=== PATIENT | male | born 1955 ===

== ENCOUNTER 2018-07-26 10:03 | Emergency (ER) | payer OTHER ==
[2018-07-26] MEDS ORDERED: NS 0.9% 1000 ML** 1,000 ML IV ONE (10:11)
[2018-07-26] MEDS ORDERED: Lorazepam PYXIS KEY PRN (10:12)
[2018-07-26] MEDS ORDERED: LORazepam INJ* 2 MG/ML 1 ML VIAL IV PUSH ONE (10:12)
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
[2018-07-26] MEDS ORDERED: Lorazepam PYXIS KEY ONE (10:33)
[2018-07-26] MEDS: levETIRAcetam 1000MG IVPREMIX* 1,000 MG/100 ML BAG IVPB ONE ×3 (11:33→11:38)
[2018-07-26 11:47] LABS: ABS Basophils 0 10^3/ul (0-0.2); ABS Eosinophils 0.2 10^3/ul (0-0.6); ABS Lymphocytes 2.8 10^3/ul (1.0-4.8); ABS Monocytes 0.8 10^3/ul (0-0.8); ABS Neutrophils 4.7 10^3/ul (1.5-7.7); ABS Nucleated RBC 0 10^3/ul; Eosinophil % 2.5 %; Hematocrit 40 % (36-46); Hemoglobin 13.7 g/dL (14.0-18.0); Lymphocyte % 32.5 %; Mean Corpuscular HGB Conc 34 g/dL (31-36); Mean Corpuscular Hemoglobin 32 pg (27-31); Mean Corpuscular Volume 94 fL (80-94); Nucleated Red Blood Cells % 0.1; Platelet Count 206 10^3/uL (150-450); Red Blood Count 4.27 10^6 /uL (4.18-5.48); Red Cell Distribution Width 14 % (10.5-15); White Blood Count 8.6 10^3/uL (3.5-10.8)
[2018-07-26 12:02] LABS: Albumin 3.6 g/dL (3.2-5.2); Albumin/Globulin Ratio 0.9 (1-3); BUN/Creatinine Ratio 17.3 (8-20); Calcium 9.6 mg/dL (8.6-10.3); EGFR African American 126.5 (>60); EGFR Non-African American 104.5 (>60); Globulin 3.9 g/dL (2-4); Total Bilirubin 0.4 mg/dL (0.2-1.0); Total Protein 7.5 g/dL (6.4-8.9)
[2018-07-26] MEDS ORDERED: Phenytoin CAP(*) 100 MG CAP.ER PO ONE (12:11)
[2018-07-26 13:23] VITALS: BP 117/76
[2018-07-26 14:25] LABS: Prolactin 5.9 ng/mL (1.0-20.0)
== END 2018-07-26 13:22 ==
LOC: ED 10:03
DX: G40.909 Epilepsy, unspecified, not intractable, without status epilepticus (principal); Z91.14 Patient's other noncompliance with medication regimen; I10 Essential (primary) hypertension
CPT/HCPCS: 36415; 70450; 80053; 80177; 82550; 84146; 84484; 85025; 93005; 96361; 96374; 96375; 99283; A9270-GY; J1953; J2060